=== PATIENT | female | born 2000 | race Caucasian/White ===

== ENCOUNTER 2023-08-24 16:51 | Outpatient (CLI) | payer BC, SELFPAY ==
--- NOTE | 2023-08-24 17:00 | US_ITS ---
Patient: NELSON RBAGG Facility:?[facility] Patient ID:?[id number] Site Patient ID:?[id number]. Site :?[id number] Study:?US-OB Pelvis dating-08/24/2023 5:29:24 PM Ordering Physician:Nelson Juarez Final Report: INDICATION: . Assess for viability and dates. COMPARISON: None available. TECHNIQUE: Grayscale pelvic ultrasound via an endovaginal approach. FINDINGS: Gestational sac and number: 1 Sac size and shape: Normal shape. No perigestational hemorrhage. MSD 2.0 cm (6 weeks 6 days). Placenta: Not yet developed. Yolk sac: Present. Amniotic fluid: Subjectively normal. heart rate: 130bpm. CRL: 1.0cm. US EGA: 7 weeks 0 days US KRISTEN: 04/11/2024 LMP KRISTEN: 03/26/2024 Uterus: No significant uterine findings. Right ovary: Normal. Left ovary: 1.7 cm corpus luteum. IMPRESSION: Braxton viable intrauterine with size and dates as above. Dictated by Leo Galvan MD @ 08/26/2023 9:41:08 AM Signed by:?Leo Galvan MD @08/26/2023 9:41:08 AM (Electronic Signature)
== END 2023-08-24 16:52 | disposition home or self-care (01) ==
LOC: US 16:52
PROVIDERS: PCP Physician Assistant; Visit Provider Advanced Practice Midwife
DX: Z34.91 Encounter for supervision of normal pregnancy, unspecified, first trimester (principal); Z3A.01 Less than 8 weeks gestation of pregnancy
CPT/HCPCS: 76817; 80306; 86703; 86706; 86803; 86850; 86900; 86901; 87086; 87340

== ENCOUNTER 2023-08-24 18:31 | Outpatient (CLI) | payer BC, SELFPAY | END 2023-08-24 18:32 | disposition home or self-care (01) | PROVIDERS: PCP Physician Assistant; Visit Provider Advanced Practice Midwife | DX: Z34.91 Encounter for supervision of normal pregnancy, unspecified, first trimester (principal); Z3A.09 9 weeks gestation of pregnancy | CPT/HCPCS: 80306; 86592; 86703; 86704; 86706; 86762; 86787; 86803; 86850; 86900; 86901; 87086; 87340 ==

== ENCOUNTER 2023-11-19 14:03 | Outpatient (CLI) | payer BC, SELFPAY ==
--- NOTE | 2023-11-19 14:00 | CRLHL7_ITS ---
For Patients: As a result of the Century Cures Act, medical imaging exams and procedure reports are released immediately into your electronic medical record. You may view this report before your referring provider. If you have questions, please contact your health care provider. INDICATION: Evaluate anatomy. COMPARISON: 08/24/2023 TECHNIQUE: Real time orozco scale imaging of the fetus was performed as well as color Doppler analysis of the umbilical vessels. FINDINGS: Sonographic imaging demonstrates a single living intrauterine gestation. Fetus demonstrates a regular cardiac rate of 161 beats per minute. Fetus has a variable position. The placenta lies fundal without evidence of placenta previa. Edge of the placenta is located 6.7 cm from the internal cervical os. Amniotic fluid volume appears normal. Single deepest vertical pocket: 3.4 cm. The cervix is closed and measures 3.1 cm in length. The composite ultrasound gestational age is calculated at 19 weeks 4 days with an estimated sonographic due date of 04/10/2024. The estimated weight is 302 grams which lies at the 56th %. The following biometric measurements were obtained: Biparietal diameter: 4.3 cm/19 weeks 0 days 33rd% Head circumference: 16.1 cm/18 weeks 6 days 20th% Abdominal circumference: 14.9 cm/20 weeks 1 day 70th% Femur length: 3.0 cm/19 weeks 1 day 33rd% The HC/AC ratio measures: 1.08 range (1.08-1.26) On anatomic survey, there is a normal appearance of the cerebral ventricles, cavum septi pellucidi, cisterna magna and cerebellum. The nose, lips, and facial profile appear normal. The cervical, thoracic and lumbar spine are well visualized and appear normal. There is a normal four-chamber heart view and the left and right ventricular outflow tracts appear normal. The diaphragm and stomach appear normal. The kidneys and bladder also appear normal. There is a normal three-vessel cord and there is an eccentric placental cord insertion site. The four extremities appear normal. IMPRESSION: Normal OB ultrasound exam with concordance of clinical and sonographic dating. No intrinsic abnormalities noted on anatomic survey. Dictated by Mohan Javier MD @ 11/22/2023 8:40:22 AM (Electronically Signed)
== END 2023-11-19 14:04 | disposition home or self-care (01) ==
LOC: US 14:03
PROVIDERS: PCP Physician Assistant; Visit Provider Advanced Practice Midwife
DX: Z34.92 Encounter for supervision of normal pregnancy, unspecified, second trimester (principal); Z3A.19 19 weeks gestation of pregnancy
CPT/HCPCS: 76805

== ENCOUNTER 2023-12-03 13:58 | Outpatient (CLI) | payer BC, SELFPAY | END 2023-12-03 13:59 | disposition home or self-care (01) | PROVIDERS: PCP Physician Assistant; Visit Provider Advanced Practice Midwife | DX: Z34.92 Encounter for supervision of normal pregnancy, unspecified, second trimester (principal); Z3A.21 21 weeks gestation of pregnancy | CPT/HCPCS: 80053 ==

== ENCOUNTER 2024-01-18 14:03 | Outpatient (CLI) | payer BC, SELFPAY | END 2024-01-18 14:04 | disposition home or self-care (01) | LOC: NFLDREF 14:04 | PROVIDERS: PCP Physician Assistant; Visit Provider Obstetrics & Gynecology | DX: O36.8330 Maternal care for abnormalities of the fetal heart rate or rhythm, third trimester, not applicable or unspecified (principal); Z3A.28 28 weeks gestation of pregnancy | CPT/HCPCS: 86592; 86850; J2791 ==

== ENCOUNTER 2024-01-18 15:18 | Outpatient (CLI) | payer BC, SELFPAY ==
[2024-01-18 15:31] VITALS: BP 102/56; PULSE 61
--- NOTE | 2024-01-18 15:45 | CRLHL7_ITS ---
For Patients: As a result of the Cures Act, medical imaging exams and procedure reports are released immediately into your electronic medical record. You may view this report before your referring provider. If you have questions, please contact your health care provider. Indication: decelerations on NST KRISTEN: 04/11/2024. Technique: Real-time sonographic images of the pelvis were obtained transabdominally using grayscale, color, and Doppler imaging. Comparison: None. Findings: A single intrauterine is present in cephalic position. Cardiac activity in the fetus is demonstrated at 130 BPM. Placenta: Fundal. No previa or abruption. Amniotic Fluid: Single deepest pocket measuring 3.3 centimeter. Biophysical profile: Breathin/2 Movement: 2/2 Tone: 2/2 Fluid volume: 2/2 Total: 11/17 Impression: 1. Single living intrauterine gestation in cephalic presentation, with heartrate 130 BPM. 2. Fundal placenta without previa or abruption. 3. Amniotic fluid single deepest pocket measuring 3.3 centimeter. 4. BPP 11/17. Dictated by Tobi Hawk MD @ 01/18/2024 5:11:21 PM (Electronically Signed)
--- NOTE | 2024-01-18 17:32 | PC.OBNST ---
NST Note NST Note Start: 01/18/24 15:45 Freq: ONCE Status: Active Protocol: Document 01/18/24 17:24 LP (Rec: 01/18/24 17:32 LP Desktop) NST Note 3 Para (# of births) 0 EDC 04/11/24 Gestational Age In Weeks & Days 28 Weeks & 0 Days Patient Presented with Complaint(s) of Other Other Complaints Audible decels heard with doppler ultrasound at routine clinic OB appointment. Sent to Center for BPP and NST. Reactive Yes Appropriate for Gestational Age Yes SARAI Mistry, RN Date 01/18/24 Reactive Yes Appropriate for Gestational Age Yes SARAI Chaudhary RN Date 01/18/24 OB NST charge Yes Complete NST Note via Write Note Yes The provider's electronic signature indicates the NST is reactive/appropriate for gestational age. *Note to provider: If an addendum is required, open the patient's chart and click on the note under the Nurse/Allied Health tab.
== END 2024-01-18 16:55 | disposition home or self-care (01) ==
LOC: OB OUT 15:18 → OB 15:18
PROVIDERS: PCP Physician Assistant; Visit Provider Obstetrics & Gynecology
DX: Z34.93 Encounter for supervision of normal pregnancy, unspecified, third trimester (principal); Z3A.28 28 weeks gestation of pregnancy
CPT/HCPCS: 59025; 76819; 86592; 86850; G0463

== ENCOUNTER 2024-02-08 14:20 | Outpatient (CLI) | payer BC, SELFPAY ==
--- NOTE | 2024-02-08 14:00 | CRLHL7_ITS ---
For Patients: As a result of the Century Cures Act, medical imaging exams and procedure reports are released immediately into your electronic medical record. You may view this report before your referring provider. If you have questions, please contact your health care provider. Indication: decreased movement KRISTEN: 04/11/2024. Technique: Real-time sonographic images of the pelvis were obtained transabdominally using grayscale, color, and Doppler imaging. Comparison: 01/18/2024. Findings: A single intrauterine is present in cephalic position. Cardiac activity in the fetus is demonstrated at 122 BPM. Placenta: Posterior. No previa or abruption. Amniotic Fluid: Single deepest pocket measuring 5.3 centimeter. Biophysical profile: Breathin/2 Movement: 2/2 Tone: 2/2 Fluid volume: 2/2 Total: 11/17 Impression: 1. Single living intrauterine gestation in cephalic presentation, with heartrate 1.2 BPM. 2. Posterior placenta without previa or abruption. 3. Amniotic fluid single deepest pocket measuring 5.3 centimeter. 4. BPP 11/17. Dictated by Tobi Hawk MD @ 02/08/2024 2:51:15 PM (Electronically Signed)
== END 2024-02-08 14:21 | disposition home or self-care (01) ==
LOC: US 14:21
PROVIDERS: PCP Physician Assistant; Visit Provider Obstetrics & Gynecology
DX: O36.8193 Decreased fetal movements, unspecified trimester, fetus 3 (principal); Z3A.31 31 weeks gestation of pregnancy
CPT/HCPCS: 76819

== ENCOUNTER 2024-02-28 14:03 | Outpatient (CLI) | payer BC, SELFPAY ==
--- NOTE | 2024-02-28 14:00 | CRLHL7_ITS ---
For Patients: As a result of the Century Cures Act, medical imaging exams and procedure reports are released immediately into your electronic medical record. You may view this report before your referring provider. If you have questions, please contact your health care provider. OB ULTRASOUND FOLLOWUP WITH BPP, 02/28/2024 CLINICAL HISTORY: Size inconsistent with dates. COMPARISON: 02/08/24, 01/18/24, 11/19/23. TECHNIQUE: Transabdominal. FINDINGS: KRISTEN by US: . GA: 33 weeks 6 days. Gestation: Single. Cervix: Visualized. positioning: Vertex. Amniotic fluid: 5.97 cm. Placenta: Technique: Transabdominal. Placenta position: Fundal. Dopplers: heart rate: 133 bpm. Umbilical artery: 2.4 s/d. 28-34 w=<4.0. Biophysical Profile: 8 Total score 2 Gross body movements 2 tone 2 Respiratory activity 2 Amniotic fluid SDP Biometry: BPD: 8.7 cm, 35 weeks 0 days. 79% HC: 30.9 cm, 34 weeks 3 days. 29% AC: 27.5 cm, 31 weeks 4 days. 5% FL: 6.5 cm, 33 weeks 4 days. 32% FL/AC Ratio: 23.7% HC/AC Ratio: 1.1. EFW: 2046 grams, 4 lb 8 oz. age by this US: 33 weeks 5 days. KRISTEN by this US: 04/12/2024. Percentile by KRISTEN: 15.7% IMPRESSION: 1. Estimated weight is at the 16th percentile. 2. Abdominal circumference is at the 5th percentile. 3. Biophysical profile score 11/17. 4. Umbilical artery S/D ratio 2.4. Keven Owusu M.D. Body/Diagnostic Radiologist [email or web address] Transcribed: 9:41 am DW/Dictated by: Keven Owusu MD @ 02/29/2024 9:34:00 AM (Electronically Signed)
== END 2024-02-28 14:04 | disposition home or self-care (01) ==
LOC: US 14:03
PROVIDERS: PCP Physician Assistant; Visit Provider Obstetrics & Gynecology
DX: O26.843 Uterine size-date discrepancy, third trimester (principal); Z3A.33 33 weeks gestation of pregnancy
CPT/HCPCS: 76816; 76819; 76820

== ENCOUNTER 2024-03-06 15:44 | Outpatient (CLI) | payer BC, SELFPAY ==
--- NOTE | 2024-03-06 16:00 | CRLHL7_ITS ---
For Patients: As a result of the Century Cures Act, medical imaging exams and procedure reports are released immediately into your electronic medical record. You may view this report before your referring provider. If you have questions, please contact your health care provider. OBSTETRICAL ULTRASOUND LIMITED INDICATION: IUGR. 3, para 0. KRISTEN by US: 04/11/2024 Gestational age: 34 weeks 6 days COMPARISON: 02/28/2024 TECHNIQUE: Transabdominal obstetrical ultrasound with Doppler. FINDINGS: Gestation: Single Cervix: Not visualized positioning: Vertex Amniotic fluid: 6.7 cm SDP TRACY: 15.5 cm Placenta position: Posterior DOPPLERS: heart rate: 169 bpm Umbilical artery: 2.1 S/D; <28 weeks = <5.0 IMPRESSION: 1. Normal amniotic fluid volume. 2. Umbilical artery S/D ratio is 2.1 cm. NICKO ROBERTS M.D. Body/Diagnostic Radiologist [email or web address] Transcribed: 2:[address]/Dictated by: Nicko Roberts MD @ 03/07/2024 2:04:00 PM (Electronically Signed)
== END 2024-03-06 15:45 | disposition home or self-care (01) ==
LOC: US 15:45
PROVIDERS: PCP Physician Assistant; Visit Provider Obstetrics & Gynecology
DX: O36.5930 Maternal care for other known or suspected poor fetal growth, third trimester, not applicable or unspecified (principal); Z3A.34 34 weeks gestation of pregnancy
CPT/HCPCS: 76815; 76820

== ENCOUNTER 2024-03-13 08:59 | Outpatient (CLI) | payer BC, SELFPAY ==
--- NOTE | 2024-03-13 09:15 | CRLHL7_ITS ---
For Patients: As a result of the Cures Act, medical imaging exams and procedure reports are released immediately into your electronic medical record. You may view this report before your referring provider. If you have questions, please contact your health care provider. HISTORY: IUGR. Deepest vertical pocket and umbilical Doppler. COMPARISON: Limited Ob ultrasound from 03/06/2024 TECHNIQUE: Ultrasound examination of the is performed with transabdominal technique. FINDINGS: A single intrauterine gestation is seen in cephalic presentation with regular cardiac activity at 142 beats per minute. The placenta is posterior and is free of the cervical os. The placental grade is 1 and the amniotic fluid volume is normal. Single deepest vertical pocket: Normal at 6.5 cm, unchanged from the previous study where it measured 6.7 cm. Umbilical artery Doppler ratio 2.0, normal, unchanged from the previous study where it measured 2.1. IMPRESSION: 1. Single intrauterine gestation in cephalic presentation with regular cardiac activity. 2. Normal single deepest vertical pocket at 6.5 cm, unchanged. 3. Normal umbilical artery Doppler ratio of 2.0, unchanged. Dictated by Neeraj Alvarado MD @ 03/13/2024 12:25:10 PM (Electronically Signed)
== END 2024-03-13 09:00 | disposition home or self-care (01) ==
PROVIDERS: PCP Physician Assistant; Visit Provider Obstetrics & Gynecology
DX: O36.5990 Maternal care for other known or suspected poor fetal growth, unspecified trimester, not applicable or unspecified (principal)
CPT/HCPCS: 76815; 76820

== ENCOUNTER 2024-03-13 10:15 | Outpatient (CLI) | payer BC, SELFPAY ==
[2024-03-14 12:15] LABS: Strep B DNA Probe POSITIVE (Negative)
[2024-03-14 12:28] LABS: Strep B Susceptibility Needed? No
== END 2024-03-13 10:16 | disposition home or self-care (01) ==
LOC: NFLDREF 10:15
PROVIDERS: PCP Physician Assistant; Visit Provider Obstetrics & Gynecology
DX: O36.5990 Maternal care for other known or suspected poor fetal growth, unspecified trimester, not applicable or unspecified (principal)
CPT/HCPCS: 87081; 87653

== ENCOUNTER 2024-03-20 08:59 | Outpatient (CLI) | payer BC, SELFPAY ==
--- NOTE | 2024-03-20 09:15 | CRLHL7_ITS ---
For Patients: As a result of the Century Cures Act, medical imaging exams and procedure reports are released immediately into your electronic medical record. You may view this report before your referring provider. If you have questions, please contact your health care provider. INDICATION: IUGR TECHNIQUE: Limited transabdominal two-dimensional orozco-scale ultrasound examination. COMPARISON: 03/13/2024 FINDINGS: There is a living fetus in cephalic lie with gestational age of 36 weeks 6 days by LMP and 36 weeks by today`s measurements. EDC based on LMP is 04/11/2024. BPD: 9.2 cm, 37 weeks 2 days Head circumference: 32.5 cm, 36 weeks 6 days Abdominal circumference: 30.3 cm, 34 weeks 2 days Femur length: 6.9 cm, 35 weeks 3 days HC/AC: 1.08 The weight is estimated at 2599 grams, the 15th percentile. The heart rate is measured at 123 beats per minute and the rhythm appears regular. The amniotic fluid volume is within normal limits with single deepest pocket of 6.2 cm. The placenta is anterior and superior to the cervical os. There is no evidence of previa. IMPRESSION: 1. Living fetus in cephalic lie with gestational age of 36 weeks 6 days by LMP and 36 weeks by today`s measurements. EDC based on LMP is 04/11/2024. 2. weight estimated at 2599 grams, the 15th percentile. Dictated by Lino Gonsalves MD @ 03/20/2024 4:27:50 PM (Electronically Signed)
== END 2024-03-20 09:00 | disposition home or self-care (01) ==
LOC: US 08:59
PROVIDERS: PCP Physician Assistant; Visit Provider Obstetrics & Gynecology
DX: O36.5930 Maternal care for other known or suspected poor fetal growth, third trimester, not applicable or unspecified (principal); Z3A.36 36 weeks gestation of pregnancy
CPT/HCPCS: 76816; 76820

== ENCOUNTER 2024-03-27 08:58 | Outpatient (CLI) | payer BC, SELFPAY ==
--- NOTE | 2024-03-27 09:15 | CRLHL7_ITS ---
For Patients: As a result of the Century Cures Act, medical imaging exams and procedure reports are released immediately into your electronic medical record. You may view this report before your referring provider. If you have questions, please contact your health care provider. INDICATION: IUGR COMPARISON: 03/20/2024 TECHNIQUE: Real time orozco scale imaging of the fetus was performed as well as color Doppler and spectral Doppler analysis of the umbilical artery. Without non-stress testing. FINDINGS: Sonographic imaging demonstrates a single living intrauterine gestation. Fetus demonstrates a regular cardiac rate of 141 beats per minute. Fetus has a vertex position. The umbilical artery demonstrates adequate diastolic blood flow. The S/D ratio measures 2.6. The amniotic fluid volume appears normal and there is a single deepest pocket measurement of 5.8 cm. The fetus was active and demonstrated normal breathing movements. There was normal flexion and extension of the trunk and extremities. IMPRESSION: Normal biophysical profile score of 8 out of 8. Dictated by Mohan Javier MD @ 03/27/2024 11:01:33 AM (Electronically Signed)
== END 2024-03-27 08:59 | disposition home or self-care (01) ==
LOC: US 08:59
PROVIDERS: PCP Physician Assistant; Visit Provider Obstetrics & Gynecology
DX: O36.5990 Maternal care for other known or suspected poor fetal growth, unspecified trimester, not applicable or unspecified (principal)
CPT/HCPCS: 76815; 76820

== ENCOUNTER 2024-03-28 05:58 | Inpatient (IN) | payer BC, SELFPAY ==
[2024-03-28] VITALS (29 sets, daily range): BP systolic 108–131; BP diastolic 56–77; PULSE 51–95; RESP 16–18; TEMP 36.4–37.2; O2SAT 91–100; BMI 22.2
[2024-03-28 07:43] LABS: Basophils Absolute Auto 0.02 K/uL (0.00-0.30); Basophils Percent Auto 0.2 % (0.0-3.0); Eosinophils Absolute Auto 0.04 K/uL (0.00-0.50); Eosinophils Percent Auto 0.4 % (0.0-7.0); Hematocrit 33.7 % (33.0-51.0); Hemoglobin* 11.6 gm/dL (12.0-16.0); Immature Granulocytes Abs Auto 0.03 K/uL (0.00-0.30); Immature Granulocytes Pct Auto 0.3 %; Lymphocytes Percent Auto 17.2 % (20-44); Mean Corpuscular HGB Conc 34 gm/dL (32-36); Mean Corpuscular Hemoglobin 32 pg (26-34); Mean Corpuscular Volume 92 fL (80-100); Monocytes Percent Auto 6.5 % (0.0-11.0); Neutrophils Percent Auto 75.4 % (42.0-72.0); Platelet Count* 159 K/uL (140-440); RDW Coefficient of Variation % 12.8 % (11.5-15.5); Red Blood Count 3.68 m/uL (4.00-5.20); White Blood Count* 9.36 K/uL (4.50-11.00)
[2024-03-28] MEDS: LACTATED RINGERS 1000 ML 1,000 ML 125 ML IV (07:47)
[2024-03-28] MEDS: OXYTOCIN 30 unit/500 ML in NS 30 UNIT/500 ML BAG IVPB (07:47)
[2024-03-28 07:49] LABS: Slide Review Reflex No
[2024-03-28] MEDS: AMPICILLIN 2 GM in 0.9 % SODIUM CHLORIDE Mini-bag 100 ML IVPB (07:51)
[2024-03-28] MEDS: CALCIUM CARBONATE 500 MG CHEW PO ×2 (08:27→12:10)
--- NOTE | 2024-03-28 09:13 | W.PM.LDBA ---
Subjective History of Present Illness Time Seen by Provider: 08:50 Date Seen: 03/28/24 Narrative: Patient is being admitted to Labor and Delivery for induction of labor for indication of IUGR. She is a 24 year old at 38 0/7 weeks' gestation. Her full history and physical was dictated by Dr. Henry on 03/20. Please see this for details. She informs me today that she has been seeing a therapist, and not a psychiatrist, weekly for several weeks. She is still on no psychiatric medication. Specific Issues/Plans Boyfriend: Carlos H&P Dr. Henry 03/20 # IUGR (by AC<10%) at 33 6/7 weeks Weekly NST and TRACY with UA Doppler Growth ultrasound every 3-4 weeks Delivery at 38-39 weeks scheduling form completed 02/27 #Significant Mental Health: ADD/ADHD, Autism, Anxiety/Depression, PTSD, ODD Not currently seeing anyone, has in past. Discussed referral for therapy, patient considering Referred to psychiatry; currently seeing them weekly #Poor Eating Habits, per patient undiagnosed eating disorder Prepregnancy BMI 16.9 As of 37 weeks, 32 lb weight gain #Marijuana use Reports using for appetite stimulation and anxiety UDS: + at NOB Recommended cessation at 12/19 visit and discussed impact on Still using at 37 weeks; again reviewed marijuana use as contraindication to #Vaping, attempting to stop Discussed nicotine replacement #Asthma Uses rescue inhaler PRN # Rh negative. Partner Rh positive. RhoGam at 28 weeks: received Rhogam for bleeding on 02/08/24 #Anemia, with Hb 10.9 at 28 weeks. Recommended supplemental iron. Improved to 11.7 by 34 weeks # Spotting noted at 02/07. Normal speculum exam, normal ultrasound appearance of placenta and BPP 11/17. RhoGam again given. Imagin08/24/2023: 6 weeks, 6 days by CRL, with ultrasonographic KRISTEN 04/11/2024, not consistent with LMP. 11/19/2023: EFW 56%, AC 70%, all other growth parameters within normal ranges. Fundal placenta without previa. Normal fluid. Normal anatomy on level 1 scan. 02/28/2024: 33 weeks, 6 days. Cephalic, normal fluid, normal UA Doppler, BPP 11/17, EFW 15.7%, AC 5%, BPD 79%, HC 29%, FL 32%. 03/20/24: Cephalic, SDP 6.2, normal UA Doppler, EFW 14.8%. AC 4.8%, BPD 74%, HC 23.6%, FL 15.2%. COVID: initial series, not boosted, declined booster Flu: Declines TDAP: 02/01/24 32wk Mental Health: CARON = 6, PHQ = 2 34wk Hgb: 11.7 RSV: 02/15/24 GBS positive; ampicillin in labor OB - Problem Based A/P Additional Plan (1) growth restriction antepartum: Status: Acute Plan: IOL with Pitocin today at 38 weeks. Continuous monitoring. AROM after 2nd dose of ampicillin for GBS + status. (2) Depression: Status: Acute Plan: She has been followed weekly by a therapist but has not seen a psychiatrist. I will again enter a referral order for her to begin . (3) Generalized anxiety disorder: Status: Acute (4) ADHD: Status: Acute (5) Autism: Status: Acute (6) Asthma: Problem details: Rescue inhaler PRN Status: Acute Plan: avoid Hemabate (7) PTSD (post-traumatic stress disorder): Status: Acute (8) Vaping nicotine dependence, tobacco product: Status: Acute Plan: Nicotine replacement as needed. Delivery/Labor/Induction Plan Plan: induction Induction method: per pitocin protocol OB Exam Physical Exam Vital signs: Temp Pulse Resp BP Pulse Ox 98 F 73 18 108/57 L 96 03/28/24 08:33 03/28/24 08:33 03/28/24 08:33 03/28/24 08:33 03/28/24 06:26 Narrative: Physical exam: General: No acute distress Psych: Alert and oriented x3, full affect HEENT: Normocephalic, atraumatic Heart: Regular rate and rhythm, no murmur rub or gallop Lungs: Clear to auscultation bilaterally Abdomen: Soft, NT, gravid, cephalic lie Lower extremities: No edema or erythema Pelvic exam: deferred at this time tracing: Baseline 120 / accelerations present / no decelerations / moderate variability Contractions Q 3 minutes
[2024-03-28] MEDS: AMPICILLIN 1 GM in 0.9 % SODIUM CHLORIDE Mini-bag 100 ML IVPB ×3 (11:32→19:28)
[2024-03-28] MEDS: ONDANSETRON 2 MG/ML inj 4 MG IV (13:06)
--- NOTE | 2024-03-28 13:06 | PM.OBPNL ---
Subjective Time Seen by Provider: 12:30 Date Seen: 03/28/24 Narrative: Maylin is a 24 yo woman at 38 0/7 weeks' gestation here for IOL for IUGR. She is GBS +, and has now received 2 doses of ampicillin IV. She has had pitocin for augmentation. Objective Exam: Gen - NAD SVE = 2 cm / 80 / -1 / anterior / moderate AROM for abundant clear fluid Vital Signs: Last Vital Signs Temp 98.3 F 03/28/24 11:36 Pulse 66 03/28/24 11:36 Resp 16 03/28/24 11:36 BP 109/57 L 03/28/24 11:36 Pulse Ox 96 03/28/24 06:26 Comments: tracing: Baseline 125 / accelerations present / isolated brief variable decelerations / moderate variability. Contractions Q 2-3 minutes. Assessment Assessment: early labor Amniotic Membrane Status: AROM Status: Category ll Tracing Comments: Category 2 for brief intermittent variables; reassuring. GBS +, on ampicillin Labor Progress: Essentially no change in cervical exam from yesterday, but favorable. Now s/p AROM. Maternal Status: STable. Plan Plan: Continue Pitocin augmentation Continuous monitoring.
[2024-03-28] MEDS: LACTATED RINGERS 1000 ML 1,000 ML 75 ML IV (17:00)
[2024-03-28] MEDS: LIDOCAINE 1 % PF 30 ML INJECTION (20:50)
--- NOTE | 2024-03-28 21:11 | W.PM.VAGDEL1 ---
Procedure Delivery date: 03/28/24 Procedure Done: [employer] Procedure Details: The patient is a 24 year-old G 3 P 0 woman admitted on 03/28/2024 at 38 Weeks, 0 Days gestation for induction of labor for indication of intrauterine growth restriction.? Cervical exam on admission was 2 cm / 80 / -1 / anterior / moderate with membranes intact in vertex presentation.? heart rate demonstrated baseline 120 bpm with moderate variability, positive accelerations, no decelerations; a category 1 tracing.? AROM occurred at 12:38 p.m. with blood-stained fluid. ? Labor Analgesia:? Nitrous during 2nd stage ? Pitocin:? Yes ? Labor onset:? 2:00 p.m. ? Complete:? 8:17 p.m. ? Pushing:? 8:18 p.m. ? heart tones during second stage were notable for variable decelerations with each contraction, some with slow return to baseline. However, there was resumption of moderate variability between contractions. ? At 8:49 p.m. a viable male infant delivered in vertex OA presentation over intact perineum via spontaneous vaginal delivery.? was placed on maternal abdomen.? Cord was clamped and cut after it ceased to pulse.? Nose and mouth were bulb suctioned.? weight pending.? 9 at 1 minute and 9 at 5 minutes.? Shoulder dystocia: No.? Nuchal cord: Now. ? Placenta delivered spontaneously and complete at 8:56 p.m. with a 3 vessel cord. ? Mother and were stable after delivery. ? Lacerations:? First-degree vaginal, repaired with a single vgilob-et-llufy suture of 3-0 Vicryl after infiltration with a small amount of 1% lidocaine. ? Blood loss: 25 mL. Blood loss measurement type: QBL ? Sponge and needles counts are correct.
[2024-03-28] MEDS: ACETAMINOPHEN 500 MG TABLET 1000 MG PO (23:31)
[2024-03-29 04:12] VITALS: BP 127/76; PULSE 70; RESP 16; TEMP 37.1; O2SAT 96
[2024-03-29] MEDS: IBUPROFEN 600 MG TABLET PO ×2 (05:34→17:30)
--- NOTE | 2024-03-29 07:17 | PM.OBPNVD1 ---
OB - PN:Subj Subjective Date Seen: 03/29/24 Narrative: Maylin is a 24 year old who was admitted for IOL for IUGR and proceeded to have a vaginal with a 1st degree laceration that was repaired.The patient feels well.? The pain is well controlled with current medications.? She has complaints of a sore tailbone and her armpits are sore from hanging on the bar.? Urinary output is adequate and she is voiding without difficulty.? Has a poor appetite, which is her norm, is not yet passing flatus, and has not had a bowel movement.? Has small amount of rubra lochia.? She is ambulating well. She is and reports he is not yet latching. LC to see her today. ? OB - PN: Obj Exam Physical Exam: Vital signs: Temp Pulse Resp BP Pulse Ox O2 Del Method 98.7 F 70 16 127/76 96 Room Air 03/29/24 04:12 03/29/24 04:12 03/29/24 04:12 03/29/24 04:12 03/29/24 04:12 03/29/24 04:12 Narrative: GENERAL APPEARANCE:? normal affect, alert, no distress MOOD:? appropriate CHEST:? clear to auscultation HEART:? regular rate and rhythm ABDOMEN:? soft, non-tender the uterine fundus is 1 cm below Umbilicus, Midline and is appropriate for the stage of recovery. PERINEUM:? mild edema of the perineum, there is a Perineal Laceration repair that is well approximated with no erythema. EXTREMITIES:? normal and no edema OB - PN: Obj Data Labs Labs: Laboratory Results - last 24 hr 03/28/24 07:33 WBC 9.36 RBC 3.68 L Hgb 11.6 L Hct 33.7 MCV 92 MCH 32 MCHC 34 RDW Coeff of Obdulia 12.8 Plt Count 159 Neut % (Auto) 75.4 H Lymph % (Auto) 17.2 L Turner % (Auto) 6.5 Eos % (Auto) 0.4 Baso % (Auto) 0.2 Neut # (Auto) 7.10 H Lymph # (Auto) 1.60 Turner # (Auto) 0.60 Eos # (Auto) 0.04 Baso # (Auto) 0.02 Abs Immat Gran (auto) 0.03 Imm/Tot Granulo (auto) 0.3 Blood Type A Negative Antibody Screen POSITIVE OB - PN: A/P Delivery Assessment and Plan (1) care and examination of lactating mother: Status: Acute (2) Depression: Status: Acute (3) Generalized anxiety disorder: Status: Acute (4) ADHD: Status: Acute (5) Autism: Status: Acute (6) Asthma: Problem details: Rescue inhaler PRN Status: Acute (7) PTSD (post-traumatic stress disorder): Status: Acute (8) Vaping nicotine dependence, tobacco product: Status: Acute (9) Poor eating habits: Problem details: Pt feels she has an eating disorder, no formal diagnosis Status: Acute (10) Marijuana use: Status: Acute (11) First degree perineal laceration during delivery: Status: Acute Plan Comments: PP day #1 Routine care Should see for support Anticipate discharge 03/30/2024 Reviewed engorgement care and anticipation, cluster feeding, caloric and hydration needs with breast feeding, encouraged nicotine cessation to support breast feeding. Encouraged PO food and fluid intake. Reviewed depression and anxiety and encouraged her to reach out to us for support and lean on her support people.
[2024-03-29 07:33] LABS: Hemoglobin* 11.8 gm/dL (12.0-16.0)
[2024-03-29 08:15] VITALS: BP 120/81; PULSE 75; RESP 16; TEMP 36.6
[2024-03-29 13:30] VITALS: BP 126/78; PULSE 75; RESP 16; TEMP 37.1; O2SAT 97
[2024-03-29] MEDS: ACETAMINOPHEN 500 MG TABLET 1000 MG PO ×2 (13:56→23:07)
[2024-03-29 17:30] VITALS: PULSE 67; RESP 16; TEMP 37.1; O2SAT 98
[2024-03-29 22:17] VITALS: BP 105/50; PULSE 70; RESP 16; TEMP 36.7; O2SAT 98
[2024-03-29 23:42] LABS: Rapid Plasma Reagin (RPR) Non Reactive (Non Reactive)
[2024-03-30 02:46] VITALS: BP 104/58; PULSE 69; RESP 16; TEMP 36.6; O2SAT 98
[2024-03-30 07:40] VITALS: BP 115/65; PULSE 65; RESP 17; TEMP 36.6; O2SAT 98
--- NOTE | 2024-03-30 07:51 | P.DS_ITS ---
DS: Providers Provider Date Seen: 03/30/24 Date of admission: 03/28/24 05:58 Primary care physician: Fabiana Elias PA-C Admitting Clinician: Lolis Henry MD Attending Physician on discharge: Maylin Hwang CNM DS: Diagnosis Discharge Diagnosis (1) care and examination of lactating mother: Status: Acute (2) First degree perineal laceration during delivery: Status: Acute (3) Oppositional defiant behavior: Status: Acute (4) Marijuana use: Status: Acute (5) Vaping nicotine dependence, tobacco product: Status: Acute (6) PTSD (post-traumatic stress disorder): Status: Acute (7) Depression: Status: Acute (8) Generalized anxiety disorder: Status: Acute (9) ADHD: Status: Acute (10) Autism: Status: Acute Exam Narrative: Exam Narrative: GENERAL APPEARANCE:? normal affect, alert, no distress MOOD:? appropriate CHEST:? clear to auscultation HEART:? regular rate and rhythm ABDOMEN:? soft, non-tender the uterine fundus is At Umbilicus, Midline and is appropriate for the stage of recovery. PERINEUM:? mild edema of the perineum, there is a vaginal Laceration,?that is healing well. EXTREMITIES:? normal and no edema Const: Vital Signs, click to edit/add: Vital Signs - 24 hr 03/29/24 08:15 03/29/24 13:30 03/29/24 17:30 Temperature 97.8 F 98.7 F 98.7 F Pulse Rate [Pulse Oximeter] 75 75 67 Respiratory Rate 16 16 16 Blood Pressure [Le ft Arm] 120/81 126/78 Pulse Oximetry 97 98 Oxygen Delivery Me thod Room Air Room Air Room Air 03/29/24 22:17 03/30/24 02:46 03/30/24 07:40 Temperature 98.1 F 97.9 F Pulse Rate [Pulse Oximeter] 70 69 65 Respiratory Rate 16 16 17 Blood Pressure [Le ft Arm] 105/50 L 104/58 L 115/65 Pulse Oximetry 98 98 98 Oxygen Delivery Me thod Room Air Room Air Room Air Documenting provider has reviewed patient's vital signs: yes OB - DS: Summary Hospital Course Hospital Course: Maylin is a 24 y.o. G 3 P 1021 who was admitted to [facility] for induction of labor for IUGR. ?She had a NVD that was uncomplicated. The patient feels well. ?The pain is well controlled with current medications. She continues to have tailbone pain.?She has no new complaints. ?She is breast feeding and reports things are going well. the patient has done well.? Vitals have been stable.? She has remained afebrile.? Has a good appetite, is tolerating a general diet. ?She is voiding without difficulty.? She is passing gas and has not had a bowel movement.? She is ambulating and denies any dizziness.? Has small amount of rubra lochia. She is planning condoms for prevention. Problems: None plan: Discharge home. Baby is staying for inpatient care. Mom will be house guest status. Follow up in 2 weeks and 6 weeks. , may see if needed Hgb 11.8. Peripartum Data Infant delivery method: Vaginal Laceration description: Vaginal - 1st Degree complications: none [facility]ant Gender: Male Discharge Plan: Home Status at Discharge Functional status at discharge: independent ambulation Overall status at discharge: patient is progressing back to baseline Time Spent with Patient Time attestation: Total time spent providing and/or coordinating discharge services: Time spent: Less than 30 minutes Discharge Plan Discharge Disposition: Home, Self-Care Date of Admission: 03/28/24 05:58 Attending Provider on Discharge: Maylin Hwang Primary Care Provider: Fabiana Elias Condition: Stable Anticipated Discharge Date/Time: 03/30/24 12:00 Discharge Medications: New ibuprofen 600 mg Tablet 600 mg PO Q6H PRNQty: 60 0RF docusate sodium 100 mg Capsule 100 mg PO DAILY Qty: 0 0RF acetaminophen 500 mg Tablet 1,000 mg PO Q6H PRNQty: 0 0RF Continued One-A-Day 400 mcg- 25 mg tablet,chewable 1 tab PO DAILY Discharge Orders: Discharge Order (Routine); Ordered 03/30/24 Ordered By: Maylin Hwang Patient Education: OB Over the Counter Medication Information, OB Vaginal/Breast Feeding Additional Instructions: Discharge instructions were reviewed with the patient including signs and symptoms of infection and home going medications Nothing vaginally for 6 weeks: no tampons or intercourse Off Work or School for 6 weeks 2-week visit: discuss feeding concerns, review control options and screen for anxiety/depression. 6-week visit for an annual exam. consultation services are available to all mothers and babies for the first year after delivery.? To make an appointment, please call [phone]. Activity Level: Activity as Tolerated Discharge Diet: Regular Follow Up Appointments: [facility] [Provider Group] Forms: [employer] Info Instructions
== END 2024-03-30 11:45 | disposition home or self-care (01) | DRG 560 ==
PROVIDERS: Admitting Provider Obstetrics & Gynecology; PCP Physician Assistant; Visit Provider Obstetrics & Gynecology
DX: O36.5930 Maternal care for other known or suspected poor fetal growth, third trimester, not applicable or unspecified (principal); O70.0 First degree perineal laceration during delivery; O99.824 Streptococcus B carrier state complicating childbirth; O99.344 Other mental disorders complicating childbirth; F12.90 Cannabis use, unspecified, uncomplicated; F90.9 Attention-deficit hyperactivity disorder, unspecified type; F84.0 Autistic disorder; F43.10 Post-traumatic stress disorder, unspecified; F41.1 Generalized anxiety disorder; F91.3 Oppositional defiant disorder; F32.A Depression, unspecified; F50.9 Eating disorder, unspecified; O99.334 Smoking (tobacco) complicating childbirth; F17.290 Nicotine dependence, other tobacco product, uncomplicated; O99.02 Anemia complicating childbirth; D64.9 Anemia, unspecified; J45.909 Unspecified asthma, uncomplicated; O26.893 Other specified pregnancy related conditions, third trimester; Z67.11 Type A blood, Rh negative; Z37.0 Single live birth; Z3A.38 38 weeks gestation of pregnancy
CPT/HCPCS: 36415; 76815; 76820; 85018; 85025; 85461; 86592; 86850; 86870; 86880; 86900; 86901; 88307; A9270; J0290; J2003; J2405; J2791; J7120